=== PATIENT | female | born 1980 | race Caucasian/White ===

== ENCOUNTER 2024-07-09 11:44 | Emergency (ER) | payer MEDICAID ==
[~2024-07-09] VITALS: Ht 167.6 cm; Wt 56.7 kg
[2024-07-09 12:10] VITALS: BP 110/61; TEMP 98.9; O2SAT 95
[2024-07-09] MEDS ORDERED: HC A30CR11 RC (13:19)
== END 2024-07-09 13:30 | disposition home or self-care (01) ==
LOC: ER 11:44
DX: S00.81XA Abrasion of other part of head, initial encounter (principal); W57.XXXA Bitten or stung by nonvenomous insect and other nonvenomous arthropods, initial encounter; Y93.89 Activity, other specified; Y92.89 Other specified places as the place of occurrence of the external cause; Y99.8 Other external cause status